=== PATIENT | male | born 1995 | race Caucasian/White ===

== ENCOUNTER 2017-01-16 14:23 | Outpatient (CLI) | payer OTHER ==
--- NOTE | 2017-01-17 11:26 | XRAY Report ---
THREE VIEW LEFT KNEE: 01/16/2017 CLINICAL INDICATION: Pop, pain. FINDINGS: AP, lateral, and sunrise views of the left knee demonstrate no evidence of fracture or dis location. No effusion is present. No foreign body is seen in the soft tissues. IMPRESSION: NORMAL LEFT KNEE. JOB #: [id number] EXT JOB #:[id number]
== END 2017-01-16 14:24 | disposition home or self-care (01) ==
LOC: DI 14:23
PROVIDERS: ATTEND Physician Assistant
DX: M25.562 Pain in left knee (principal)

== ENCOUNTER 2019-04-30 10:03 | Emergency (ER) | payer OTHER ==
[2019-04-30] MEDS ORDERED: KETOROLAC 60 MG/2 ML VIAL IM STA (11:05)
[2019-04-30] MEDS ORDERED: CHERRY SYRUP 10 ML UDC PO ONE (11:05)
[2019-04-30] MEDS ORDERED: DEXAMETHASONE 10 MG/ML VIAL PO STA (11:05)
--- NOTE | 2019-04-30 11:08 | ED Physician Documentation ---
PD HPI BACK INJURY - Stated complaint Stated Complaint: BACK PAIN - History obtained from History obtained from: Patient - History of Present Illness Location: Left, Upper, Lower Type of injury: Other (lifting) Where injury occurred: Work Timing - onset: Today Timing - duration: Minutes Timing - details: Abrupt onset, Still present Quality: Pain, Spasm, Sharp Improved by: Rest Worsened by: Moving, Palpating Associated symptoms: No: Fever, Weakness, Numbness, Incontinent of urine, Unable to urinate, Hematuria, Incontinent of stool Similar symptoms before: Has not had sx before Recently seen: Not recently seen - Additional information Additional information: 23 y/o male Was at work today when he was lifting a 5 foot x 13 foot window he lifted it slightly and put it back down felt that this strained his back and then when he went to lift up some boxes later he had acute onset of severe pain. Review of Systems Constitutional: denies: Fever Eyes: denies: Decreased vision Ears: denies: Ear pain Nose: denies: Congestion Throat: denies: Sore throat Cardiac: denies: Chest pain / pressure, Palpitations Respiratory: denies: Dyspnea, Cough GI: denies: Nausea, Vomiting Skin: denies: Rash Musculoskeletal: reports: Back pain. denies: Neck pain, Extremity pain PD PAST MEDICAL HISTORY - Past Medical History Past Medical History: No - Past Surgical History Past Surgical History: No - Present Medications Home Medications: Ambulatory Orders Medication Instructions Recorded Confirmed Cyclobenzaprine [Flexeril] 10 mg PO TID PRN #20 tablet 04/30/19 Hydrocodone/Acetaminophen 1 - 2 each PO Q6H PRN #14 tablet 04/30/19 [Hydrocodon-Acetaminophen 5-325] - Allergies Allergies/Adverse Reactions: Allergies Allergy/AdvReac Type Severity Reaction Status Date / Time No Known Drug Allergies Allergy Verified 04/30/19 10:12 - Social History Does the pt smoke?: No Smoking Status: Never smoker Substance Use and Type: Marijuana PD ED PE NORMAL - Vitals Vital signs reviewed: Yes (hypertensive ) - General General: Alert and oriented X 3, No acute distress, Well developed/nourished - HEENT HEENT: Atraumatic, PERRL, EOMI - Neck Neck: Supple, no meningeal sign - Respiratory Respiratory: No respiratory distress - Back Back: No CVA TTP, No spinal TTP, Other (There is mild tenderness to the latissimus from the shoulder to the illiac) - Derm Derm: Normal color, Warm and dry, No rash - Extremities Extremities: No deformity, No edema - Neuro Neuro: Alert and oriented X 3, 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, No motor deficit, No sensory deficit, Normal speech Eye Opening: Spontaneous Motor: Obeys Commands Verbal: Oriented GCS Score: 15 - Psych Psych: Normal mood, Normal affect Results - Vitals Vitals: Vital Signs - 24 hr 04/30/19 04/30/19 10:08 11:40 Temperature 36.5 C Heart Rate 52 L 44 L Respiratory 15 18 Rate Blood Pressure 165/95 H 124/65 O2 Saturation 100 100 Oxygen O2 Source Room air PD MEDICAL DECISION MAKING - ED course Complexity details: reviewed results, re-evaluated patient, considered differential, d/w patient ED course: 23-year-old male with a strain of his thoracolumbar spine has acute pain and he is administered dexamethasone 10 mg orally and Toradol [address] will place him on some pain medication muscle relaxant and off work for 5 days. Departure - Departure Disposition: 01 Home, Self Care Clinical Impression: Acute thoracic myofascial strain Qualifiers: Encounter type: initial encounter Qualified Code(s): S29.019A - Strain of muscle and tendon of unspecified wall of thorax, initial encounter Condition: Stable Instructions: ED Sprain Thoracic Spine Follow-Up: [facility] [Provider Group] Prescriptions: Cyclobenzaprine [Flexeril] 10 mg PO TID PRN #20 tablet PRN Reason: Spasms Hydrocodone/Acetaminophen [Hydrocodon-Acetaminophen 5-325] 1 - 2 each PO Q6H PRN #14 tablet PRN Reason: pain Forms: Activity restrictions Discharge Date/Time: 04/30/19 11:41
[2019-04-30 11:41] VITALS: BP 124/65
== END 2019-04-30 11:41 | disposition home or self-care (01) ==
LOC: ED 10:03
DX: S29.012A Strain of muscle and tendon of back wall of thorax, initial encounter (principal); S39.012A Strain of muscle, fascia and tendon of lower back, initial encounter; X50.0XXA Overexertion from strenuous movement or load, initial encounter; Y93.89 Activity, other specified; Y99.0 Civilian activity done for income or pay
CPT/HCPCS: 1040M; 96372; 99283; 99284; A9270